=== PATIENT | female | born 1980 | race Caucasian/White ===

== ENCOUNTER 2019-01-11 18:06 | Emergency (ER) | payer OTHER, SELFPAY ==
--- NOTE | 2019-01-11 18:12 | ED_ITS ---
HPI - Extremity Problem General Chief complaint: Extremity Injury, Upper Stated complaint: thinks she broke her right hand Time Seen by Provider: 01/11/19 18:12 Source: patient and family Mode of arrival: Ambulatory Limitations: no limitations History of Present Illness HPI Narrative: 38-year-old female who comes to the emergency department complaint of pain in her right hand over the area of the thenar eminence. Patient states that she had a fall. She fell backwards with her hand outstretched behind her. States she fell on her buttocks and hand. She states happened probably about 430 today. She continues to have quite a bit of pain particularly with movement. She denies any numbness or tingling. She did take 400 mg Advil shortly after the injury which has been helpful. She denies any weakness. She denies any other injuries other than her buttocks being slightly sore but states mild. She has been ambulating without issue. She denies any other medical issues. States she had surgery for shoulder after recurrent dislocations. Patient is left handed. Related Data Allergies Allergy/AdvReac Type Severity Reaction Status Date / Time No Known Drug Allergies Allergy Verified 01/11/19 18:17 Review of Systems Review of Systems ROS Unobtainable: All systems reviewed & are unremarkable except as noted in HPI and below Constitutional Constitutional: Denies weakness Musculoskeletal Musculoskeletal: Reports as per HPI, Denies deformity, Reports arthralgias, Reports limited range of motion, Denies numbness, Reports stiffness and Denies tingling Integumentary/Breasts Skin/Breast: Denies erythema, Denies unusual bruising and Denies wounds Neurologic Neurologic: Denies focal weakness, Denies numbness, Denies sensory deficit, Denies tingling and Denies weakness Patient History Surgical History (Updated 01/11/19 @ 18:20 by Francesca Menendez DO) H/O shoulder surgery (Acute) Social History Smoking Status: Never smoker Exam Narrative Exam Narrative: GENERAL: Alert and oriented x three, well-nourished, well- appearing female in mild distress. HEENT: Head normocephalic, atraumatic, EOMI, pupils reactive, face symmetric, moist mucous membranes NECK: Supple, full range of motion EXTREMITIES: Normal range of motion although decreased at the 1st interphalangeal joint patient is able to flex and extend but is uncomfortable, no obvious deformity patient does have swelling of the thenar eminence little bit of mild bruising. Patient does not have any bony tenderness of the 2nd through 4th fingers or metacarpals. She does have some mild tenderness of the proximal thumb and 1st metacarpal. Patient has very minimal tenderness at the wrist. With normal range of motion at the wrist. And normal range of motion all other fingers. Cap refills less than 2 seconds. She has 2+ radial pulse. With normal sensation throughout all 5 fingers., no clubbing or edema. Neurovascularly intact. skin is mildly dry. NEUROLOGICAL: Cranial nerves II through XII grossly intact. Moving all extremit ies SKIN: Warm, dry, no petechiae, no rashes or lesions. Initial Vital Signs Initial Vital Signs: Vital Signs Temperature 99.1 F 01/11/19 18:17 Pulse Rate 64 01/11/19 18:17 Respiratory Rate 18 01/11/19 18:17 Blood Pressure 129/90 01/11/19 18:17 Pulse Oximetry 98 01/11/19 18:17 Course Orders Ordered: ED Orders 01/11/19 18:16 XR hand RT min 3V Stat Vital Signs Vital signs: Vital Signs - 8 hr 01/11/19 18:17 Temperature 99.1 F Pulse Rate 64 Respiratory Rate 18 Blood Pressure 129/90 Pulse Oximetry 98 MDM - Extremity (Nontraumatic) Imaging Data right hand xray: Attestation: I personally reviewed and interpreted this imaging study as follows: My impression: no fx noted. Radiologist's impression: [address] [address] XRay Report Signed Patient: Kimberlee Patel [facility]#: [id number] : 1980Acct:[id number] Age/Sex: 38 / FDate of Service: 01/11/19 Loc: ED Accession Number: [id number] Procedure: XR hand RT min 3V Ordering Provider: Francesca Menendez D.O. PROCEDURE: XR HAND RT MIN 3V INDICATIONS: pain right thenar eminence s/p fall. TECHNIQUE: 3 views of the hand(s) acquired. COMPARISON: None. FINDINGS: Bones: No fractures or dislocations. Carpal bones are normally aligned. No suspicious bony lesions. Soft tissues: No suspicious soft tissue calcifications. IMPRESSION: No acute fracture. No osseous lesion. If clinical suspicion and/or symptoms persist, further assessment with repeat plainfilms, or advanced imaging (e.g., CT, MRI, or bone scan) may be helpful for further assessment. Dictated by: Haroon Guthrie M.D. on 01/11/2019 at 18:52 Approved by: Haroon Guthrie M.D. on 01/11/2019 at 18:53 MDM Narrative Medical decision making narrative: No fracture noted. Discussed with patient there is possibility of occult fracture or missed fracture. Plan for splint and follow up with orthopedic surgery. Discharge Plan Departure Patient Disposition: Home Clinical Impression: Hand pain, right Instructions: DI for a Hand Fracture Activity Restrictions/Additional Instructions: Follow up with orthopedic surgery in the next 5-7 days for recheck. You may take tylenol up to 1000mg every 8 hours as needed for pain and/or ibuprofen 800mg every 8 hours as needed for pain. If you are totally asymptomatic after several days you do not have to continue to use the splint. Splint Care: Keep splint clean and dry. Elevated affected body part to decrease swelling. OK to use ice pack on the affected body part. Use for 15-20 minutes each time, for 5-6x per day. If you develop worsening pain, numbness, tingling, discoloration of the affected body part, loosen the splint by loosening the FRIDA wrap, and either see your doctor for an urgent re-assessment, or return to the Emergency Department. Return to the Emergency Department for any new or worsening symptoms. Referrals: Austin Sorensen ARNP [Primary Care Provider] - Chaz Arias MD [Physician] -
--- NOTE | 2019-01-11 18:16 | DI.RAD.S_ITS ---
PROCEDURE: XR HAND RT MIN 3V INDICATIONS: pain right thenar eminence s/p fall. TECHNIQUE: 3 views of the hand(s) acquired. COMPARISON: None. FINDINGS: Bones: No fractures or dislocations. Carpal bones are normally aligned. No suspicious bony lesions. Soft tissues: No suspicious soft tissue calcifications. IMPRESSION: No acute fracture. No osseous lesion. If clinical suspicion and/or symptoms persist, further assessment with repeat plainfilms, or advanced imaging (e.g., CT, MRI, or bone scan) may be helpful for further assessment. Dictated by: Haroon Guthrie M.D. on 01/11/2019 at 18:52 Approved by: Haroon Guthrie M.D. on 01/11/2019 at 18:53
[2019-01-11 18:17] VITALS: BP 129/90; PULSE 64; RESP 18; TEMP 37.3; O2SAT 98; BMI 24.5
[2019-01-11 18:30] VITALS: PULSE 78
--- NOTE | 2019-01-11 19:12 | PC.NURSE ---
thumb spica was not effective and caused more pain. Discussed w/ Dr. Menendez who agreed to change to orthoglass splint. Pt was much more comfortable. + CSM and decreased pain after orthoglass splint placement.
== END 2019-01-11 19:19 | disposition home or self-care (01) ==
PROVIDERS: Emergency Provider Emergency Medicine; PCP Registered Nurse
DX: M79.641 Pain in right hand (principal); W19.XXXA Unspecified fall, initial encounter
CPT/HCPCS: 29125; 73130; 99282; 99283

== ENCOUNTER 2020-08-06 22:23 | Emergency (ER) | payer OTHER, SELFPAY ==
[2020-08-06 22:30] VITALS: BP 126/84; PULSE 76; RESP 17; TEMP 36.5; O2SAT 100; BMI 25.7
--- NOTE | 2020-08-06 22:38 | ED_ITS ---
HPI - General Adult General Chief complaint: Extremity Injury, Upper Stated complaint: RIGHT SHOULDER SEVERE PAIN Time Seen by Provider: 08/06/20 22:33 Source: patient Mode of arrival: Ambulatory Limitations: no limitations History of Present Illness HPI narrative: Patient is a 40-year-old female here for evaluation of severe pain in her right shoulder. Patient states she has had issues with the shoulder in the past and has dislocated her shoulder a couple times in the past. She states that earlier today she was in the shower and lifted her arm above her shoulder and since that time has had extreme pain. She has tried ice at home without any improvement. She states that this is worse than when she is dislocated her shoulder in the past. This has tingling going down her arm into her hand. Took some Tylenol prior to arrival without any improvement. Related Data Previous Rx's Medication Instructions Recorded diazepam [Valium] 2 mg PO BID PRN #7 tab 08/07/20 Allergies Allergy/AdvReac Type Severity Reaction Status Date / Time No Known Drug Allergies Allergy Verified 01/11/19 18:17 Review of Systems Constitutional Constitutional: Reports system reviewed and no additional complaints, except as documented Musculoskeletal Musculoskeletal: Reports tingling Comments: Right shoulder pain Integumentary/Breasts Skin/Breast: Reports system reviewed and no additional complaints, except as documented Neurologic Neurologic: Reports tingling Hematologic/Lymphatic On Anticoagulants: No Patient History Medical History Shoulder dislocation Surgical History (Updated 01/11/19 @ 18:20 by Francesca Menendez DO) H/O shoulder surgery Social History Smoking Status: Never smoker Smoking Status: Never smoker Substance Use Type: does not use Exam Initial Vital Signs Initial Vital Signs: Vital Signs Temperature 97.7 F 08/06/20 22:30 Pulse Rate 76 08/06/20 22:30 Respiratory Rate 17 08/06/20 22:30 Blood Pressure 126/84 08/06/20 22:30 Pulse Oximetry 100 08/06/20 22:30 Const General: cooperative Limitations: mental status not altered HENMT Head: normal to inspection and normocephalic Resp Effort & Inspection: normal respiratory effort Cardio Pulses: radial pulses present on the right Skin Lesions: no lesions Rashes: no rashes Neuro General: patient alert and patient awake Extrem Other: Very difficult to obtain an exam from the patient. It appears that her right wrist and right elbow were unremarkable. She cannot move her right shoulder secondary to discomfort in seem to have discomfort were ever it was palpated. Psych Appearance: grossly normal and well kempt Course Orders Ordered: ED Orders 08/06/20 22:38 XR shoulder RT min 2V Stat Discontinued Medications Hydrocodone Bitart/Acetaminophen (Hydrocodone/Acet 5/325 Tablet) 1 tab PO NOW ONE Stop: 08/07/20 00:07 Last Admin: 08/07/20 00:20 Dose: Not Given Documented by: SIOBHAN Diazepam (Diazepam 5 Mg Tablet) 5 mg PO NOW ONE Stop: 08/07/20 00:27 Last Admin: 08/07/20 00:31 Dose: 5 mg Documented by: SIOBHAN Hydromorphone HCl (Hydromorphone 1 Mg Inj) 1 mg IM NOW ONE Stop: 08/06/20 22:39 Last Admin: 08/06/20 22:54 Dose: 1 mg Documented by: YUDI Ketorolac Tromethamine (Ketorolac 30 Mg/Ml Vial) 30 mg IM NOW ONE Stop: 08/07/20 00:07 Last Admin: 08/07/20 00:15 Dose: 30 mg Documented by: SIOBHAN Vital Signs Vital signs: Vital Signs - 8 hr 08/06/20 22:30 08/07/20 00:40 08/07/20 01:38 Temperature 97.7 F Pulse Rate 76 74 87 Respiratory Rate 17 26 H 16 Blood Pressure 126/84 128/85 112/76 Pulse Oximetry 100 100 100 Medical Decision Making Imaging Data Extremity x-ray #1: Radiologist's Impression: X-ray right shoulder shows no acute process MDM Narrative Medical decision making narrative: The x-ray shows no signs of fracture. Initial pain medication provided minimal relief. He was until she received Valium that her symptoms seem to improve. I was still able to do a complete shoulder exam secondary to her discomfort. Will send home with a sling for her comfort however she was instructed to stay out of the sling as much as possible. Will give her prescription for some Valium as this seems to be what has improved her symptoms. Lab her contact her orthopedic provider to discuss further workup potential MRI. She expressed understanding and agreement. Discharge Plan Departure Patient Disposition: Home Clinical Impression: Acute pain of right shoulder Instructions: DI for Shoulder Pain Activity Restrictions/Additional Instructions: I do recommend that you may contact with your orthopedic provider to discuss further workup to include the discussion about the indications for an MRI of her shoulder. If you would like to stay local you can contact the [facility] at [phone]. Contact your primary provider for follow-up as well. Return to the emergency department for any new or worsening symptoms Prescriptions: New diazepam [Valium] 2 mg tablet 2 mg PO BID PRN (Reason: muscle spasm) Qty: 7 RF: 0 Referrals: Austin Sorensen ARNP [Primary Care Provider] -
--- NOTE | 2020-08-06 22:38 | DI.RAD.S_ITS ---
PROCEDURE: XR SHOULDER RT MIN 2V INDICATIONS: pain after frequent dislocations TECHNIQUE: 2 views of the shoulder were acquired. COMPARISON: None. FINDINGS: Bones: No fractures or dislocations. No suspicious bony lesions. Visualized ribs appear intact. Soft tissues: Potential calcific tendinopathy can be seen. The visualized lung demonstrates an unremarkable appearance. IMPRESSION: No fracture or dislocation can be seen. Potential calcific tendinopathy. If it would be helpful for clinical management decision making, please consider a dedicated, scheduled shoulder MRI for further evaluation (assuming that there is no contraindication). Note: No significant discrepancy from the preliminary report. Dictated by: Martin Meza M.D. on 08/07/2020 at 8:36 Approved by: Martin Meza M.D. on 08/07/2020 at 8:37
[2020-08-06] MEDS: HYDROMORPHONE 1 MG INJ IM (22:54)
--- NOTE | 2020-08-06 23:14 | PC.NURSE ---
Pt feels sleepy but no change in pain.
[2020-08-07] MEDS: KETOROLAC 30 MG/ML VIAL IM (00:15)
[2020-08-07] MEDS: diazePAM 5 MG TABLET PO (00:31)
[2020-08-07 00:40] VITALS: BP 128/85; PULSE 74; RESP 26; O2SAT 100
--- NOTE | 2020-08-07 01:31 | PC.NURSE ---
Pt is feeling much better.
[2020-08-07 01:38] VITALS: BP 112/76; PULSE 87; RESP 16; O2SAT 100
== END 2020-08-07 01:45 | disposition home or self-care (01) ==
PROVIDERS: Emergency Provider Emergency Medicine; PCP Registered Nurse
DX: M25.511 Pain in right shoulder (principal)
CPT/HCPCS: 73030; 96372; 99283; J1170; J1885